=== PATIENT | female | born 1955 | race African-American/Black ===

== ENCOUNTER 2018-03-12 20:18 | Emergency (ER) | payer OTHER ==
[~2018-03-12] VITALS: Ht 160 cm; Wt 48.0 kg
[2018-03-12 20:28] VITALS: BP 129/74
[2018-03-12] MEDS ORDERED: TETRACAINE 0.5% OPHTH DROPS 4ML OP ONE (22:15)
[2018-03-12] MEDS ORDERED: FLUORESCEIN SODIUM 1MG/STRIP OP ONE (22:15)
[2018-03-12] MEDS ORDERED: LIDOCAINE HCL 1% 20ML VIAL (Pyxis) INJ INFIL ONE (23:45)
== END 2018-03-12 23:13 | disposition home or self-care (01) ==
LOC: ER 20:18
DX: H20.9 Unspecified iridocyclitis (principal); I10 Essential (primary) hypertension; F17.200 Nicotine dependence, unspecified, uncomplicated
CPT/HCPCS: 99283; J3490